=== PATIENT | male | born 1965 | race Caucasian/White ===

== ENCOUNTER 2018-05-07 11:09 | Emergency (ER) | payer MEDICAID ==
[~2018-05-07] VITALS: Ht 188 cm; Wt 122.0 kg
[2018-05-07 11:29] VITALS: Ht 188 cm; Wt 122.0 kg
[2018-05-07 16:09] LABS: BASOPHIL % 1.3 % (0-2); PLATELET COUNT 261 x10^3mcL (130-400); RED CELL DISTRIBUTION WIDTH 12.4 % (11.5-14.5)
[2018-05-07 16:16] LABS: CALCIUM 8.1 mg/dL (8.5-10.1); CARBON DIOXIDE 26.6 mmol/L (21-32); CHLORIDE SERUM 103 mmol/L (98-107); GFR1 > 60 mL/min; GLUCOSE SERUM 242 mg/dL (74-106); POTASSIUM SERUM 3.9 mmol/L (3.5-5.1); SODIUM SERUM 138 mmol/L (136-145)
[2018-05-07 16:21] LABS: ALKALINE PHOSPHATASE 73 U/L (46-116); ALT/SGPT 83 U/L (16-63); AST/SGOT 27 U/L (15-37); BILIRUBIN TOTAL 1.02 mg/dL (0.20-1.00)
[2018-05-07 16:30] LABS: ALBUMIN 3.1 g/dL (3.4-5.0)
[2018-05-07 17:16] LABS: microscopic required? YES; urine erythrocyte 1+ (NEGATIVE)
[2018-05-07 19:33] VITALS: BP 160/91
== END 2018-05-07 19:33 | disposition home or self-care (01) ==
LOC: ED 11:09
PROVIDERS: Emergency Medicine
DX: N39.0 Urinary tract infection, site not specified (principal); N50.89 Other specified disorders of the male genital organs; I10 Essential (primary) hypertension
CPT/HCPCS: 87491; 87591; J0696; J1885; J2270; J2405; J7030; Q0092

== ENCOUNTER 2018-05-09 15:55 | Inpatient (IN) | payer MEDICAID ==
[~2018-05-09] VITALS: Ht 182.9 cm; Wt 122.5 kg
[2018-05-09 16:50] LABS: BASOPHIL % 0.2 % (0-2); PLATELET COUNT 235 x10^3mcL (130-400); RED CELL DISTRIBUTION WIDTH 12.3 % (11.5-14.5)
[2018-05-09 16:57] LABS: CALCIUM 8.9 mg/dL (8.5-10.1); CARBON DIOXIDE 28.3 mmol/L (21-32); CHLORIDE SERUM 98 mmol/L (98-107); GFR1 > 60 mL/min; GLUCOSE SERUM 256 mg/dL (74-106); SODIUM SERUM 134 mmol/L (136-145)
[2018-05-09 17:02] LABS: ALKALINE PHOSPHATASE 122 U/L (46-116); ALT/SGPT 128 U/L (16-63); AST/SGOT 34 U/L (15-37); BILIRUBIN TOTAL 0.9 mg/dL (0.20-1.00); LIPASE 95 IU/L (73-393); TOTAL PROTEIN, SERUM 7.7 g/dL (6.4-8.2)
[2018-05-09 17:03] LABS: ALBUMIN 2.9 g/dL (3.4-5.0); AMYLASE 16 U/L (25-115)
[2018-05-09 18:13] LABS: microscopic required? YES; urine erythrocyte TRACE (NEGATIVE)
[2018-05-09 19:21] LABS: MAGNESIUM 2.1 mg/dL (1.8-2.4); PHOSPHOROUS 2.3 mg/dL (2.5-4.9)
[2018-05-09 19:22] LABS: CHOLESTEROL/HDL RATIO 6.1
[2018-05-09 21:06] VITALS: BP 151/96
[2018-05-10 00:04] VITALS: BP 151/86
[2018-05-10 05:46] VITALS: BP 143/91
[2018-05-10 06:56] LABS: BASOPHIL % 0.2 % (0-2); PLATELET COUNT 198 x10^3mcL (130-400); RED CELL DISTRIBUTION WIDTH 12.8 % (11.5-14.5)
[2018-05-10 07:04] LABS: CALCIUM 8.4 mg/dL (8.5-10.1); CARBON DIOXIDE 27.4 mmol/L (21-32); CHLORIDE SERUM 104 mmol/L (98-107); CREATININE SERUM 0.9 mg/dL (0.7-1.3); GFR1 > 60 mL/min; GLUCOSE SERUM 175 mg/dL (74-106); POTASSIUM SERUM 3.9 mmol/L (3.5-5.1); SODIUM SERUM 140 mmol/L (136-145)
[2018-05-10 08:59] VITALS: BP 152/84
[2018-05-10 13:34] VITALS: BP 143/73
[2018-05-10 16:17] VITALS: BP 153/87
[2018-05-10 21:31] VITALS: BP 130/88
[2018-05-11 05:48] VITALS: BP 124/67
[2018-05-11 06:41] LABS: CALCIUM 8.5 mg/dL (8.5-10.1); CARBON DIOXIDE 26.7 mmol/L (21-32); CHLORIDE SERUM 104 mmol/L (98-107); CREATININE SERUM 0.9 mg/dL (0.7-1.3); GFR1 > 60 mL/min; GLUCOSE SERUM 161 mg/dL (74-106); PHOSPHOROUS 2.8 mg/dL (2.5-4.9); POTASSIUM SERUM 3.6 mmol/L (3.5-5.1); SODIUM SERUM 137 mmol/L (136-145)
[2018-05-11 07:13] LABS: BASOPHIL % 0.8 % (0-2); PLATELET COUNT 249 x10^3mcL (130-400); RED CELL DISTRIBUTION WIDTH 11.8 % (11.5-14.5)
[2018-05-11 08:30] VITALS: Ht 182.9 cm; Wt 122.5 kg
[2018-05-11 09:02] VITALS: BP 162/92
[2018-05-11 13:07] VITALS: BP 145/87
[2018-05-11 17:25] VITALS: BP 144/87
[2018-05-11 20:49] VITALS: BP 13/79
[2018-05-12 05:52] VITALS: BP 130/70
[2018-05-12 06:48] LABS: BASOPHIL % 0.4 % (0-2); PLATELET COUNT 243 x10^3mcL (130-400); RED CELL DISTRIBUTION WIDTH 12.5 % (11.5-14.5)
[2018-05-12 07:02] LABS: CALCIUM 8.6 mg/dL (8.5-10.1); CARBON DIOXIDE 26.5 mmol/L (21-32); CHLORIDE SERUM 105 mmol/L (98-107); CREATININE SERUM 0.9 mg/dL (0.7-1.3); GFR1 > 60 mL/min; GLUCOSE SERUM 206 mg/dL (74-106); SODIUM SERUM 139 mmol/L (136-145)
[2018-05-12 09:46] VITALS: BP 154/100
[2018-05-12 14:08] VITALS: BP 123/76
[2018-05-12 17:00] VITALS: BP 138/83
[2018-05-12 21:56] VITALS: BP 145/84
[2018-05-13 05:39] VITALS: BP 143/91
[2018-05-13 07:20] LABS: BASOPHIL % 0.4 % (0-2); PLATELET COUNT 292 x10^3mcL (130-400); RED CELL DISTRIBUTION WIDTH 12.8 % (11.5-14.5)
[2018-05-13 07:46] LABS: CALCIUM 8.9 mg/dL (8.5-10.1); CARBON DIOXIDE 26.3 mmol/L (21-32); CHLORIDE SERUM 103 mmol/L (98-107); CREATININE SERUM 0.9 mg/dL (0.7-1.3); GFR1 > 60 mL/min; GLUCOSE SERUM 147 mg/dL (74-106); SODIUM SERUM 138 mmol/L (136-145)
[2018-05-13 09:24] VITALS: BP 141/87
[2018-05-13 17:40] VITALS: BP 160/95
[2018-05-13 17:45] VITALS: BP 133/81
[2018-05-13 21:18] VITALS: BP 150/78
[2018-05-14 05:59] VITALS: BP 143/86
[2018-05-14 07:25] LABS: BASOPHIL % 0.7 % (0-2); PLATELET COUNT 297 x10^3mcL (130-400); RED CELL DISTRIBUTION WIDTH 12.3 % (11.5-14.5)
[2018-05-14 07:47] LABS: CALCIUM 8.7 mg/dL (8.5-10.1); CARBON DIOXIDE 27.3 mmol/L (21-32); CHLORIDE SERUM 102 mmol/L (98-107); CREATININE SERUM 0.8 mg/dL (0.7-1.3); GFR1 > 60 mL/min; GLUCOSE SERUM 189 mg/dL (74-106); POTASSIUM SERUM 4.1 mmol/L (3.5-5.1); SODIUM SERUM 137 mmol/L (136-145)
[2018-05-14 09:37] VITALS: BP 134/88
[2018-05-14 17:44] VITALS: BP 137/78
[2018-05-14 21:13] VITALS: BP 110/68
[2018-05-15 05:28] VITALS: BP 127/68
[2018-05-15 06:47] LABS: BASOPHIL % 0.7 % (0-2); PLATELET COUNT 318 x10^3mcL (130-400); RED CELL DISTRIBUTION WIDTH 12.2 % (11.5-14.5)
[2018-05-15 07:33] LABS: CALCIUM 8.4 mg/dL (8.5-10.1); CARBON DIOXIDE 28.1 mmol/L (21-32); CHLORIDE SERUM 102 mmol/L (98-107); CREATININE SERUM 0.9 mg/dL (0.7-1.3); GFR1 > 60 mL/min; GLUCOSE SERUM 263 mg/dL (74-106); POTASSIUM SERUM 4.6 mmol/L (3.5-5.1); SODIUM SERUM 137 mmol/L (136-145)
[2018-05-15 09:21] VITALS: BP 148/80
[2018-05-15] MEDS ORDERED: ZESTRIL5 MG PO (13:44)
[2018-05-15] MEDS ORDERED: MEROPENEM1 GM IV (13:44)
[2018-05-15] MEDS ORDERED: METFORMIN HCL500 MG PO (13:44)
[2018-05-15 14:32] VITALS: BP 148/80
[2018-05-15 17:14] VITALS: BP 148/87
[2018-05-15 21:04] VITALS: BP 147/96
== END 2018-05-15 21:12 | disposition home or self-care (01) | DRG 720 ==
LOC: ED 15:55 → MU 18:14 → DU 18:14 → MU 21:04 → DU 21:06 → MU 05-12 10:53
PROVIDERS: Emergency Medicine; ADMIT General Practice
PROC: 05HY33Z Insertion of Infusion Device into Upper Vein, Percutaneous Approach (ICD-10-PCS; principal; 2018-05-15)
PROC: 05HC33Z Insertion of Infusion Device into Left Basilic Vein, Percutaneous Approach (ICD-10-PCS; 2018-05-15)
PROC: B54NZZA Ultrasonography of Left Upper Extremity Veins, Guidance (ICD-10-PCS; 2018-05-15)
DX: A41.51 Sepsis due to Escherichia coli [E. coli] (principal); N17.0 Acute kidney failure with tubular necrosis; E44.0 Moderate protein-calorie malnutrition; E11.8 Type 2 diabetes mellitus with unspecified complications; E83.39 Other disorders of phosphorus metabolism; D68.69 Other thrombophilia; I86.1 Scrotal varices; N39.0 Urinary tract infection, site not specified; B96.29 Other Escherichia coli [E. coli] as the cause of diseases classified elsewhere; N49.2 Inflammatory disorders of scrotum; N43.1 Infected hydrocele; E87.1 Hypo-osmolality and hyponatremia; R74.0 Nonspecific elevation of levels of transaminase and lactic acid dehydrogenase [LDH]; E78.5 Hyperlipidemia, unspecified; E66.9 Obesity, unspecified; K76.0 Fatty (change of) liver, not elsewhere classified; Z68.35 Body mass index [BMI] 35.0-35.9, adult; Z79.84 Long term (current) use of oral hypoglycemic drugs
CPT/HCPCS: 82962; 87491; 87591; J0696; J1815; J1885; J2185; J2270; J2543; J3010; J3370; J3490; J7030; J7050; Q0092

== ENCOUNTER 2018-05-16 10:46 | Emergency (ER) | payer MEDICAID ==
[~2018-05-16] VITALS: Ht 188 cm; Wt 118.4 kg
[~2018-05-16 10:46] MED LIST: MEROPENEM1 GM IV; METFORMIN HCL500 MG PO; ZESTRIL5 MG PO
[2018-05-16 10:50] VITALS: Ht 188 cm; Wt 118.4 kg
[2018-05-16 13:13] VITALS: BP 138/93
== END 2018-05-16 13:49 | disposition home or self-care (01) ==
LOC: ED 10:46
DX: T85.618A Breakdown (mechanical) of other specified internal prosthetic devices, implants and grafts, initial encounter (principal); Z45.2 Encounter for adjustment and management of vascular access device; I10 Essential (primary) hypertension; N49.2 Inflammatory disorders of scrotum
CPT/HCPCS: 96523; J1642; J2185; J2997; Q0092

== ENCOUNTER 2018-05-18 11:24 | Inpatient (IN) | payer MEDICAID ==
[~2018-05-18] VITALS: Ht 182.9 cm; Wt 115.2 kg
[2018-05-18 11:38] VITALS: Ht 182.9 cm; Wt 115.2 kg
[2018-05-18 14:56] LABS: BASOPHIL % 1.4 % (0-2); RED CELL DISTRIBUTION WIDTH 12.5 % (11.5-14.5)
[2018-05-18 15:02] LABS: PLATELET COUNT 401 x10^3mcL (130-400)
[2018-05-18 15:08] LABS: CALCIUM 8.7 mg/dL (8.5-10.1); CARBON DIOXIDE 26.2 mmol/L (21-32); CHLORIDE SERUM 103 mmol/L (98-107); CREATININE SERUM 0.9 mg/dL (0.7-1.3); GFR1 > 60 mL/min; GLUCOSE SERUM 136 mg/dL (74-106); POTASSIUM SERUM 4.7 mmol/L (3.5-5.1); SODIUM SERUM 136 mmol/L (136-145)
[2018-05-18 15:14] LABS: ALKALINE PHOSPHATASE 96 U/L (46-116); ALT/SGPT 67 U/L (16-63); AST/SGOT 23 U/L (15-37); BILIRUBIN TOTAL 0.4 mg/dL (0.20-1.00); TOTAL PROTEIN, SERUM 7.9 g/dL (6.4-8.2)
[2018-05-18 15:33] LABS: MAGNESIUM 2.4 mg/dL (1.8-2.4)
[2018-05-18 16:13] VITALS: BP 132/86
[2018-05-18 17:54] LABS: microscopic required? NO
[2018-05-18 17:58] LABS: UA SPECIFIC GRAVITY 1.015 (1.005-1.035); urine erythrocyte NEGATIVE (NEGATIVE)
[2018-05-18 18:11] LABS: AMPHETAMINE QUAL UR NONE DETECTED (See below)
[2018-05-18 20:44] VITALS: BP 126/71
[2018-05-19 06:04] VITALS: BP 131/81
[2018-05-19 06:17] LABS: PLATELET COUNT 371 x10^3mcL (130-400); RED CELL DISTRIBUTION WIDTH 12.1 % (11.5-14.5)
[2018-05-19 06:32] LABS: CALCIUM 8.4 mg/dL (8.5-10.1); CARBON DIOXIDE 25.3 mmol/L (21-32); CHLORIDE SERUM 106 mmol/L (98-107); CREATININE SERUM 0.8 mg/dL (0.7-1.3); GFR1 > 60 mL/min; GLUCOSE SERUM 170 mg/dL (74-106); MAGNESIUM 2.2 mg/dL (1.8-2.4); PHOSPHOROUS 3.2 mg/dL (2.5-4.9); POTASSIUM SERUM 4.2 mmol/L (3.5-5.1); SODIUM SERUM 141 mmol/L (136-145)
[2018-05-19 08:32] VITALS: BP 137/76
[2018-05-19 12:22] VITALS: BP 138/87
[2018-05-19 16:41] VITALS: BP 134/82
[2018-05-19 17:17] VITALS: BP 134/82
[2018-05-19 22:06] VITALS: BP 120/74
[2018-05-20 05:31] VITALS: BP 138/90
[2018-05-20 09:55] VITALS: BP 144/88
[2018-05-20 12:24] VITALS: BP 144/88
== END 2018-05-20 13:19 | disposition home or self-care (01) | DRG 206 ==
LOC: ED 11:24 → MU 14:37
PROVIDERS: Specialist; ADMIT Internal Medicine
PROC: 3C1ZX8Z Irrigation of Indwelling Device using Irrigating Substance, External Approach (ICD-10-PCS; principal; 2018-05-19)
PROC: 05PYX3Z Removal of Infusion Device from Upper Vein, External Approach (ICD-10-PCS; 2018-05-19)
DX: T82.594A Other mechanical complication of infusion catheter, initial encounter (principal); N17.0 Acute kidney failure with tubular necrosis; E11.65 Type 2 diabetes mellitus with hyperglycemia; N39.0 Urinary tract infection, site not specified; N45.1 Epididymitis; B96.20 Unspecified Escherichia coli [E. coli] as the cause of diseases classified elsewhere; R74.0 Nonspecific elevation of levels of transaminase and lactic acid dehydrogenase [LDH]; Z16.12 Extended spectrum beta lactamase (ESBL) resistance; Z79.84 Long term (current) use of oral hypoglycemic drugs; Z68.33 Body mass index [BMI] 33.0-33.9, adult; Y82.8 Other medical devices associated with adverse incidents; Y92.009 Unspecified place in unspecified non-institutional (private) residence as the place of occurrence of the external cause
CPT/HCPCS: 82962; 83880; J1644; J2185; J7030

== ENCOUNTER 2018-05-26 13:25 | Emergency (ER) | payer MEDICAID ==
[~2018-05-26] VITALS: Ht 182.9 cm; Wt 117.1 kg
[2018-05-26 15:58] VITALS: BP 191/94
== END 2018-05-26 15:58 | disposition home or self-care (01) ==
LOC: ED 13:25
DX: Z45.2 Encounter for adjustment and management of vascular access device (principal)